=== PATIENT | female | born 1960 | race Caucasian/White ===

== ENCOUNTER 2018-01-11 12:08 | Emergency (ER) | payer OTHER ==
[2018-01-11 12:21] VITALS: BP 139/74
--- NOTE | 2018-01-11 12:51 | ER Document Report ---
ED Medical Screen (RME) - General Chief Complaint: Chest Pain Stated Complaint: ACCELERATED HEART RATE Time Seen by Provider: 01/11/18 12:46 Notes: Patient says that her heart rate keeps spiking up. She says that it began last Saturday and has occurred intermittently since then, maybe 4-5 times a day. She has noticed that her heart rate seems to be irregular and has been as high as 130. She was able to determine this rate using a portable monitor belonging to a friend. Patient says she feels a little short of breath, but no chest pains. Has recently been drinking tea in the afternoon, but otherwise her diet is caffeine free. No history of hyperthyroid. PMH: MVP, no current problems, hypertension, TRAVEL OUTSIDE OF THE [place] IN LAST 30 DAYS: No - Related Data Allergies/Adverse Reactions: No Known Allergies Allergy (Verified 01/11/18 12:08) Past Medical History - Social History Chew tobacco use (# tins/day): No Frequency of alcohol use: None Drug Abuse: None - Past Medical History Cardiac Medical History: Reports: Hx Hypertension Renal/ Medical History: Denies: Hx Peritoneal Dialysis Past Surgical History: Reports: Hx Orthopedic Surgery - L4-5 S1 L3-4 Physical Exam - Vital signs Vitals: Temp Pulse Resp BP Pulse Ox 98.2 F 86 16 139/74 H 94 01/11/18 12:19 01/11/18 12:19 01/11/18 12:19 01/11/18 12:19 01/11/18 12:19 Course - Vital Signs Vital signs: Temp Pulse Resp BP Pulse Ox 98.2 F 86 16 139/74 H 94 01/11/18 12:19 01/11/18 12:19 01/11/18 12:19 01/11/18 12:19 01/11/18 12:19
--- NOTE | 2018-01-11 14:11 | EKG REPORT ---
SEVERITY:- NORMAL ECG - SINUS RHYTHM : Confirmed by: Jas Hampton MD 11-Jan-2018 14:10:58
== END 2018-01-11 13:20 | disposition left against medical advice (07) ==
LOC: ER 12:08
DX: R00.0 Tachycardia, unspecified (principal); R06.02 Shortness of breath; I10 Essential (primary) hypertension; Z53.20 Procedure and treatment not carried out because of patient's decision for unspecified reasons
CPT/HCPCS: 93005; 93010; 99281